=== PATIENT | male | born 1980 | race Caucasian/White ===

== ENCOUNTER 2018-08-24 12:27 | Emergency (ER) | payer SELFPAY ==
[~2018-08-24] VITALS: Ht 170.2 cm; Wt 79.5 kg
[2018-08-24] MEDS ORDERED: morphine 4 MG/ML inj SYRINge IV ONE (13:40)
[2018-08-24] MEDS ORDERED: propofol 10mg/ml 20ml vial IV ONE (14:15)
[2018-08-24] MEDS ORDERED: normal saline 1000ML IV soln IVB ONE (14:15)
[2018-08-24 15:38] VITALS: BP 144/79
[2018-08-24] MEDS ORDERED: IBUP-1985 PO (15:42)
[2018-08-24] MEDS ORDERED: HYDR-4383 PO (15:42)
== END 2018-08-24 15:56 | disposition home or self-care (01) ==
LOC: ER 12:29
DX: S43.015A Anterior dislocation of left humerus, initial encounter (principal); F12.90 Cannabis use, unspecified, uncomplicated; Z88.0 Allergy status to penicillin; W18.49XA Other slipping, tripping and stumbling without falling, initial encounter; Y93.39 Activity, other involving climbing, rappelling and jumping off; Y92.69 Other specified industrial and construction area as the place of occurrence of the external cause; Y99.9 Unspecified external cause status
CPT/HCPCS: 23650; 73020; 73030; 94760; 96374; 99285; J2270; J2704; J7030